=== PATIENT | female | born 1980 | race Caucasian/White ===

== ENCOUNTER 2016-06-06 06:47 | Day surgery (SDC) | payer OTHER ==
[~2016-06-06 06:47] MED LIST: Buffered Lidocaine 1% SYRIN* 3 ML/SYR SYRINGE INTRADERM ONE
[2016-06-06 06:51] LABS: Manual Entry Verification CAR0052; UR Preg Internal Control QC Line Present; UR Preg Kit Lot# 6030156
[2016-06-06] MEDS ORDERED: ceFAZolin 2 GM PREMIX(*) 2 GM/50 ML BAG IVPB ONE (08:23)
[2016-06-06] MEDS ORDERED: ceFAZolin 1 GM in Dextrose (*) 1 GM/50 ML BAG IVPB ONE (08:23)
[2016-06-06] MEDS ORDERED: Lidocaine 1% INJ* 10 MG/ML 30 ML SDV ONE (08:49)
[2016-06-06] MEDS ORDERED: Lidocaine 4% TOPICAL* 50 ML TOP.SOLN ONE (08:49)
[2016-06-06] MEDS ORDERED: Bupivacaine 0.5% W/EPI SDV* 30 ML VIAL ONE (08:49)
[2016-06-06] MEDS ORDERED: Oxymetazoline 0.05% NASAL SPR* 15 ML BTL ONE (08:49)
[2016-06-06] MEDS ORDERED: Midazolam* 1 MG/ML 5 ML VIAL (5 MG) ONE ×2 (09:09→09:46)
[2016-06-06] MEDS ORDERED: fentaNYL* 50 MCG/ML 2 ML VIAL (100 MCG VIAL) ONE ×2 (09:09→09:23)
[2016-06-06] MEDS ORDERED: fentaNYL* 50 MCG/ML 2 ML VIAL (100 MCG VIAL) IV PRN (10:38)
[2016-06-06] MEDS ORDERED: Ondansetron INJ* 2 MG/ML VIAL IV PRN (10:38)
[2016-06-06] MEDS ORDERED: DiMENhydriNATE IV* 50 MG/ML VIAL IV PUSH PRN (10:38)
[2016-06-06] MEDS ORDERED: HYDROcodone/ACETAMIN 5-325 MG* 1 TAB ONE (10:56)
[2016-06-06 11:38] VITALS: BP 119/75
--- NOTE | 2016-06-07 03:12 | OP ---
DATE OF OPERATION: 06/06/16 - [facility] DATE OF : 82 SURGEON: Hardik Rivera MD DISTANCE LEARNING UNIT LEADER: MD Dr. Aruna Walker also performed the nasal laryngoscopy during the procedure. ANESTHESIOLOGIST: Vignesh Roa MD ANESTHESIA: Local with MAC anesthesia. PRE-OP DIAGNOSIS: Left vocal cord paralysis. POST-OP DIAGNOSIS: Left vocal cord paralysis. OPERATIVE PROCEDURE: Left thyroplasty implant with a #10 [employer] implant. COMPLICATIONS: None. DISPOSITION: Good. ESTIMATED BLOOD LOSS: Minimum. SPECIMEN: None. DESCRIPTION OF PROCEDURE: The patient was taken to the operating room, placed in a supine position on the operating table. Head was extended. Her neck was prepped with Betadine and an incision was demarcated and injected with 1% lidocaine with 1:100,000 epinephrine. She was draped in a sterile fashion. Her neck was infiltrated with 0.5% Marcaine with epinephrine and mixed 50:50 with 1% lidocaine. An incision was made and the dissection was taken down through the platysma muscle. The strap muscles were lifted off the left thyroid lamina exposing the left thyroid lamina. Using the [employer] implant system, the location of the implant was demarcated and an ear drill with a bur was used to make the window through the thyroid lamina for the implant. At this point, Dr. Valdovinos performed the nasal laryngoscopy and we used the sizing system to decide what size implant to use and we settled on a #10 and it looked like it was an excellent location. The implant was inserted. Location and good voice was ensured by having her speak during the procedure and the implant looked to be in good position with good voice quality. The wound was irrigated with saline. The strap muscles were reapproximated with some 3-0 Polysorb. The skin was then closed with 3-0 deep dermal Polysorb and a running subcuticular 4-0 nylon. Steri-strips and Mastisol were placed. The patient tolerated the procedure well with no complications and transferred to recovery room in stable condition. [id number] #: [id number] MTDD
== END 2016-06-06 11:39 | disposition home or self-care (01) ==
LOC: OR 06:47
PROVIDERS: ATTEND Otolaryngology
DX: J38.01 Paralysis of vocal cords and larynx, unilateral (principal); G47.33 Obstructive sleep apnea (adult) (pediatric); J35.1 Hypertrophy of tonsils
CPT/HCPCS: 81025; A9270-GY; J0690; J2001; J2250; J3010